=== PATIENT | female | born 1945 | race Caucasian/White ===

== ENCOUNTER → 2016-12-15 | Day surgery (SDC) | payer OTHER, BC ==
--- NOTE | 2016-12-16 09:46 | OP ---
DATE OF OPERATION: 12/15/2016 PREOPERATIVE DIAGNOSIS: Left breast mass at 11 o'clock, 5 cm from the nipple. POSTOPERATIVE DIAGNOSIS: Left breast mass at 11 o'clock, 5 cm from the nipple. PROCEDURE: Left ultrasound-guided core biopsy with clip placement. ANESTHESIA: Local. ATTENDING SURGEON: Talat Ibarra MD ESTIMATED BLOOD LOSS: Minimal. COMPLICATIONS: None. INDICATIONS: Patient was made aware of the risks and benefits of the procedure and consented. DESCRIPTION OF PROCEDURE: She was placed in supine position. Under sterile conditions with 1% lidocaine for local anesthesia, a small deniz was made in the skin. Using a 10-gauge suction biopsy device via lateral approach under ultrasound guidance, multiple cores were obtained and submitted to Pathology. Likewise, under ultrasound guidance, a bow-tie was placed into the biopsy region. Well tolerated by patient. Steri-Strip and sterile bandage were applied. Patient went for post-procedure mammogram. TALAT IBARRA M.D. [id number]
--- NOTE | 2016-12-18 16:32 | PATH ---
Surgical Pathology Report Patient Name: DEMETRIUS MAR [facility]. Rec. #: [id number] /Age/Gender: 1945 (Age: 71) / F Account: [id number] Location: Taken: 12/15/2016 Received: 12/15/2016 Reported: 12/18/2016 Physicians: Mitali Miller M.D. Specimen(s) Received LEFT BREAST CORE BIOPSY 11 O'CLOCK 5 CM FN Clinical History Nonpalpable lesion Ultrasound findings: suspicious Final Diagnosis BREAST, LEFT, 11:00, 5 CMFN, CORE BIOPSY: DUCTAL CARCINOMA IN SITU (DCIS), SOLID AND CRIBRIFORM TYPE, INTERMEDIATE NUCLEAR GRADE INVOLVING RADIAL SCLEROSING LESION WITH ASSOCIATED CALCIFICATIONS. (SEE NOTE) Note: Myoepithelial immunohistochemical markers (SMM-HC & p63, performed at [facility]) show the following results: SMM-HC demonstrates the presence of myoepithelial cells in the sclerosing lesion as well as DCIS. Immunostain for p63 shows only rare/attenuated myoepithelial cells in the sclerosing lesion and DCIS. These findings are consistent with the diagnosis. Results of ER and WY studies performed at [facility] are as follows: ER (clone [id number] mouse monoclonal antibody by Leica) :> 90 % nuclear staining with strong intensity (Positive). WY (clone16 mouse monoclonal antibody by Leica): > 90 % nuclear staining with strong intensity (Positive). Positive and negative controls (internal if applicable) show appropriate results. Formalin fixation and cold ischemic times are within current ASCO/CAP recommendations for ER, WY and Her2 testing. Electronically Signed Kim Schaeffer M.D. Gross Description Received in formalin labeled "left breast biopsy 11:00, 5 cmfn," is a 2.0 x 1.8 x 0.3 cm aggregate of multiple martins-yellow, irregular to cylindrical portions of fibroadipose tissue. The formalin is filtered and the specimen is entirely submitted in one cassette. Time to formalin fixation: < 1 minute Total formalin fixation time: Approximately 6 hours. /12/15/2016 saudi12/15/2016
== END | disposition home or self-care (01) ==
LOC: FRADUS-SUR 12:50
PROVIDERS: ATTEND Surgery
PROC: 0HBU3ZX Excision of Left Breast, Percutaneous Approach, Diagnostic (ICD-10-PCS; principal; 2016-12-15)
DX: D05.12 Intraductal carcinoma in situ of left breast (principal); N63 Unspecified lump in breast
CPT/HCPCS: 19083; 88305-TC; 88341-TC; 88342-TC; G0206-TC

== ENCOUNTER 2016-12-29 10:49 | Day surgery (SDC) | payer OTHER, BC ==
--- NOTE | 2016-12-25 11:45 | HP ---
Admitting History and Physical - Primary Care Physician PCP: Sandy Colon - Admission Chief Complaint: Left breast DCIS History of Present Illness: 71 year old postmenapausal female with mammogram showing mass in left central breast 09/2016. US showed 8 mm mass at 11:00 Left breast US core bx showed DCIS ER/WY positive. Here for left breast wide excision. History Source: Patient Limitations to Obtaining History: No Limitations - Past Medical History Cardiovascular: Yes: HTN, Hyperlipdemia - Smoking History Smoking history: Current every day smoker Have you smoked in the past 12 months: Yes Aproximately how many cigarettes per day: 60 - Alcohol/Substance Use Hx Alcohol Use: No (RARE) Home Medications - Allergies Allergies/Adverse Reactions: Allergies Allergy/AdvReac Type Severity Reaction Status Date / Time No Known Allergies Allergy Verified 10/26/15 16:55 - Home Medications Home Medications: Ambulatory Orders Atenolol [Tenormin -] 25 mg PO DAILY 10/26/15 Atorvastatin Ca [Lipitor] 10 mg PO HS 10/26/15 Cholecalciferol (Vitamin D3) [Vitamin D3] 5,000 unit PO DAILY 10/26/15 Family Disease History - Family Disease History Other Family History: mat [place] ? 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
[2016-12-27 14:55] VITALS: BMI 31.4
[2016-12-29] MEDS ORDERED: BUPIVACAINE HCL/PF 2.5 MG/ML - 30 ML VIAL IJ ONE (13:25)
[2016-12-29] MEDS ORDERED: LIDOCAINE HCL 1%, 10 MG/ML (20ML VIAL) ONE (13:25)
[2016-12-29] MEDS ORDERED: LIDOCAINE 1%/EPI 1:100000 (20 ML MULTI DOSE VIAL) ONE (13:25)
[2016-12-29] MEDS ORDERED: MIDAZOLAM HCL 2 MG/2 ML SINGLE DOSE VIAL ONE (13:28)
[2016-12-29] MEDS ORDERED: KETOROLAC TROMETHAMINE 30 MG/1 ML VIAL IVPUSH PRN (13:53)
[2016-12-29] MEDS ORDERED: ONDANSETRON 4 MG/2 ML VIAL IVPB PRN (13:53)
[2016-12-29] MEDS ORDERED: DEXTROSE 5%-0.45% SALINE 1,000 ML IV SCH (14:00)
[2016-12-29] MEDS ORDERED: PROPOFOL 20 ML ONE ×2 (14:04)
[2016-12-29] MEDS ORDERED: SUCCINYLCHOLINE CHLORIDE 200 MG/10 ML VIAL ONE (14:04)
[2016-12-29] MEDS ORDERED: DEXAMETHASONE SOD PHOSPHATE 4 MG/1 ML VIAL ONE (14:12)
[2016-12-29] MEDS ORDERED: ceFAZolin SODIUM 1 GM VIAL ONE (14:12)
[2016-12-29] MEDS ORDERED: LIDOCAINE HCL 1%, 10 MG/ML (50 mL VIAL) IJ ONE (14:21)
[2016-12-29] MEDS ORDERED: ePHEDrine SULFATE 50 MG/1 ML AMPULE ONE (14:32)
[2016-12-29] MEDS ORDERED: BUPIVACAINE HCL/PF 0.25% (2.5MG/ML) 10 ML VIAL IJ ONE (15:05)
[2016-12-29] MEDS ORDERED: oxyCODONE HCL 5 MG TABLET PO PRN (15:20)
[2016-12-29] MEDS ORDERED: LACTATED RINGERS SOLUTION 1,000 ML IV SCH (15:30)
[2016-12-29] MEDS ORDERED: KETOROLAC TROMETHAMINE 30 MG/1 ML VIAL ONE (15:42)
[2016-12-29] MEDS ORDERED: ONDANSETRON 4 MG/2 ML VIAL ONE (16:02)
[2016-12-29 17:02] VITALS: PULSE 74; TEMP 98.1
--- NOTE | 2016-12-29 17:07 | OP ---
DATE OF OPERATION: 12/29/2016 PREOPERATIVE DIAGNOSIS: Left breast ductal carcinoma in situ. POSTOPERATIVE DIAGNOSIS: Left breast ductal carcinoma in situ. PROCEDURE: Left breast partial mastectomy with needle localization. SURGEON: Sandy Colon M.D. ENVELOPE MAKER: Olga Orta ANESTHESIOLOGIST: Tana Hartman M.D. ANESTHESIA: General. SPECIMEN: Left breast tissue and additional margin. DRAINS: None. ESTIMATED BLOOD LOSS: Minimal. COMPLICATIONS: None. INDICATION FOR PROCEDURE: The patient is a 71-year-old nulliparous white female. She had her baseline mammogram in Sep, 2016, which showed a mass in the left central breast. Ultrasound showed an 8-mm mass at 11 o'clock. Biopsy showed ER/MN positive intermediate grade DCIS. She was recommended wide excision. She is going to the operating room today for the procedure. PROCEDURE: The patient was taken to breast imaging where she underwent localization of the clip in the right breast at 11 o'clock. She was taken to ambulatory surgery where informed consent was obtained and the left breast was identified with a marker. She was then taken to the operating room and placed on the operating table in the supine position. Sequential compression devices were placed on both legs. She received antibiotics prior to surgery. General anesthesia was initiated. The left breast was prepped and draped in the usual fashion. The guidewire could be seen exiting the left breast in the upper inner quadrant. An incision was made in the left breast above the areola. This was a horizontal incision. The incision was deepened using electrocautery. The tissue around the needle was mobilized using electrocautery. There was still a residual hematoma from the previous biopsy. Once tissue all around the needle was mobilized, the needle was disassembled and the specimen was removed. It was labeled with silk sutures, with a long stitch laterally and a short stitch superiorly. A specimen radiograph showed the clip and specimen were included. Additional margins were then taken from the superior, inferior, medial, lateral, anterior, and deep margins of the biopsy cavity. They were all labeled with a stitch of the biopsy cavity side. All specimens were placed in formalin and sent to pathology for further evaluation. The wound was irrigated and inspected for hemostasis. Once hemostasis was satisfactory, the incision was closed. The deep tissue was closed with interrupted sutures of 2-0 plain. The dermis was closed with interrupted tissue of 3-0 Vicryl. The skin was closed with a running subcuticular closure of 4-0 Monocryl. The skin was infiltrated with 0.25% Marcaine prior to closure. The wound was cleaned, and a sterile dressing was applied. The patient was awakened and taken to the recovery area in satisfactory condition. At the end of the procedure, all sponge count and lap and instrument counts were correct. Mitali [id number] MTDD
[2017-01-02 08:47] VITALS: BP 129/68
--- NOTE | 2017-01-04 10:34 | PATH ---
Surgical Pathology Report Patient Name: DEMETRIUS MAR [facility]. Rec. #: [id number] /Age/Gender: 1945 (Age: 71) / F Account: [id number] Location: [facility] Taken: 12/29/2016 Received: 12/29/2016 Reported: 01/04/2017 Physicians: Sandy Colon M.D. Specimen(s) Received A: LEFT BREAST WIDE EXCISION B: LEFT BREAST INFERIOR MARGIN C: LEFT BREAST MEDIAL MARGIN D: LEFT BREAST SUPERIOR MARGIN E: LEFT BREAST LATERAL MARGIN F: LEFT BREAST DEEP MARGIN G: LEFT BREAST ANTERIOR MARGIN Clinical History Wide excision: DCIS Final Diagnosis A. BREAST, LEFT, WIDE EXCISION: DUCTAL CARCINOMA IN SITU (DCIS), INTERMEDIATE NUCLEAR GRADE, PREDOMINANTLY INVOLVING SCLEROSING ADENOSIS WITH RARE SEPARATE FOCI OF DCIS. (SEE NOTE) DCIS IS PRESENT IN TWO OF TEN SLIDES (2/10). SURGICAL MARGINS ARE UNINVOLVED BY DCIS; DCIS IS AT 1 MM FROM THE CLOSEST (SUPERIOR) MARGIN. SEE SPECIMENS B-G FOR SEPARATE FINAL MARGINS. PRIOR BIOPSY SITE CHANGES ARE PRESENT. PATHOLOGIC STAGE (pTNM]: pTis(DCIS) pNx. Note: Myoepithelial immunohistochemical markers (SMM-HC & p63 performed at [facility], p40 performed at [place], [place]: [id number]) show the following results: SMM-HC highlights the presence of myoepithelial cells in sclerosing adenosis as well as in foci of DCIS involving sclerosing adenosis; p63 and p40 immunostains are essentially non-contributory and show only rare attenuated myoepithelial cells in the lesion. The morphologic features, in conjunction with immunohistochemical findings with SMM-HC support the diagnosis. Case reviewed in intradepartmental consultation with consensus on diagnosis. B. BREAST, LEFT, INFERIOR MARGIN, EXCISION: BENIGN BREAST TISSUE SHOWING SMALL RADIAL SCAR. C. BREAST, LEFT, MEDIAL MARGIN, EXCISION: BENIGN BREAST TISSUE. D. BREAST, LEFT, SUPERIOR MARGIN, EXCISION: BENIGN BREAST TISSUE. E. BREAST, LEFT, LATERAL MARGIN, EXCISION: BENIGN BREAST TISSUE SHOWING SCLEROSING ADENOSIS. F. BREAST, LEFT, DEEP MARGIN, EXCISION: BENIGN BREAST TISSUE SHOWING SCLEROSING ADENOSIS AND SMALL RADIAL SCAR. G. BREAST, LEFT, ANTERIOR MARGIN, EXCISION: BENIGN BREAST TISSUE. Comments DCIS of Breast: Surgical Pathology Cancer Case Summary Based on AJCC/UICC TNM, 7th edition Procedure _X_ Excision with image-guided localization Specimen Laterality _X_ Left Estimated size (extent) of DCIS (greatest dimension using gross and microscopic evaluation): cannot be determined (DCIS partially involves a 6 mm nodular focus of sclerosing adenosis) Number of blocks with DCIS: 2 Number of blocks examined: 30 (based on specimens A-G) Nuclear Grade _X_ Grade II (intermediate) Necrosis _X_ Present, focal (small foci or single cell necrosis) Microcalcifications _X_ Present in both DCIS and non-neoplastic tissue Margins _X_ Margin(s) uninvolved by DCIS Distance from closest margin: 1 mm from superior margin in wide excision A. Final superior margin D is negative for DCIS. Primary Tumor (pT) _X_ pTis (DCIS): Ductal carcinoma in situ Regional Lymph Nodes (pN): pNx Biomarker Studies Results of ER and RI studies performed on prior biopsy ([id number]) at [facility] are as follows: ER (clone [id number] mouse monoclonal antibody by Leica): > 90 % nuclear staining with strong intensity (Positive RI (clone16 mouse monoclonal antibody by Leica) : > 90 % nuclear staining with strong intensity (Positive). Electronically Signed Kim Schaeffer M.D. Gross Description A. Received in formalin, labeled "left breast wide excision," is a 4.9 x 2.4 x 2.3 cm. martins-yellow, irregular, portion of fibroadipose tissue with a needle localization wire present. There is a short suture marking the superior aspect and a long suture marking the lateral aspect, per the surgeon. There is no skin present. The specimen is inked as follows: superior and lateral blue; inferior green; medial yellow; anterior red; deep black. The specimen is serially sectioned from medial to lateral. Sectioning reveals yellow adipose tissue and woody fibrous tissue with a hemorrhagic biopsy cavity with associated clip abutting the superior margin. The specimen is totally sequentially submitted in 10 cassettes from medial to lateral, with the medial margin in cassette A1 and the lateral margin in cassettes A9 and A10. Time to formalin fixation: 8 minutes Total formalin fixation time: Approximately 75 hours. B. Received in formalin labelled "left breast inferior margin suture paul biopsy cavity side" is a 2.9 x 2.5 x 0.8 cm piece of yellow fibrofatty tissue with a suture marking one aspect. The opposite margin is inked. Sectioned and totally submitted in 2 cassettes. C. Received in formalin labelled "left breast medial margin suture paul biopsy cavity side" is a 3.2 x 2.5 x 0.8 cm portion of yellow fatty tissue with a suture marking one aspect. The opposite margin is inked. Sectioned and totally submitted in 3 cassettes. D. Received in formalin labelled "left breast superior margin suture paul biopsy cavity side" is 3.9 x 3.1 x 1.3 cm piece of yellow fibrofatty tissue with a suture marking one aspect. The opposite margin is inked. Sectioned and totally submitted in 6 cassettes E. Received in formalin labelled "left breast lateral margin suture paul biopsy cavity side" is an irregular 2.5 x 2.0 x 0.6 cm portion of yellow fatty tissue with a suture marking one aspect. Also present in specimen container are a few unoriented pieces of yellow adipose tissue. The margin opposite the suture is inked. Sectioned and totally submitted in 2 cassettes. F. Received in formalin labelled "left breast deep margin suture paul biopsy cavity side" is a 2.2 x 2.5 x 1.0 cm portion of yellow fibrofatty tissue with a suture marking one aspect. The opposite margin is inked. Sectioned and totally submitted in 3 cassettes. G. Received in formalin labelled "left breast anterior margin suture apul biopsy cavity side" is a 3.0 x 2.5 x 1.2 cm portion of yellow fibrofatty tissue with a suture marking one aspect. The opposite margin is inked. Sectioned and totally submitted in 4 cassettes. [facility]01/01/2017 [facility]01/01/2017
== END 2016-12-29 17:35 | disposition home or self-care (01) ==
LOC: FASU 10:49
PROVIDERS: ATTEND Surgery
PROC: 0HBU0ZZ Excision of Left Breast, Open Approach (ICD-10-PCS; principal; 2016-12-29 13:30)
DX: D05.12 Intraductal carcinoma in situ of left breast (principal); D05.82 Other specified type of carcinoma in situ of left breast; I10 Essential (primary) hypertension; E78.5 Hyperlipidemia, unspecified; F17.210 Nicotine dependence, cigarettes, uncomplicated
CPT/HCPCS: 19281; 88307-TC; 88341-TC; 88342-TC; 94760

== ENCOUNTER → 2022-03-02 | Day surgery (SDC) | payer OTHER, BC | END | disposition home or self-care (01) | LOC: FMAMMOTONE 09:34 | PROVIDERS: ATTEND Physician Assistant | PROC: 0HBT3ZX Excision of Right Breast, Percutaneous Approach, Diagnostic (ICD-10-PCS; principal; 2022-03-02) | DX: N60.11 Diffuse cystic mastopathy of right breast (principal); N60.21 Fibroadenosis of right breast; N64.89 Other specified disorders of breast; R92.0 Mammographic microcalcification found on diagnostic imaging of breast | CPT/HCPCS: 19081; 76098-TC-FY; 87899; 88305-TC; 88342-TC; A4648 ==

== ENCOUNTER → 2022-09-12 | Day surgery (SDC) | payer OTHER, BC | END | disposition home or self-care (01) | LOC: FMAMMOTONE 12:11 | PROVIDERS: ATTEND Surgery Surgical Oncology | PROC: 0HBT3ZX Excision of Right Breast, Percutaneous Approach, Diagnostic (ICD-10-PCS; principal; 2022-09-12) | DX: N60.91 Unspecified benign mammary dysplasia of right breast (principal); N64.89 Other specified disorders of breast; R92.0 Mammographic microcalcification found on diagnostic imaging of breast | CPT/HCPCS: 19081; 76098-TC-FY; 87899; 88305-TC; 88342-TC; A4648 ==